=== PATIENT | male | born 1970 | race Caucasian/White ===

== ENCOUNTER 2020-08-02 09:51 | Emergency (ER) | payer BC, OTHER ==
[~2020-08-02] VITALS: Ht 175.3 cm; Wt 79.4 kg
[2020-08-02 09:51] VITALS: BP_SYST 161
[~2020-08-02 09:51] MED LIST: [UNRECOGNIZED DRUG - CODE] PO
--- NOTE | 2020-08-02 09:51 | NUR ---
ASSISTED OUT OF CAR TO WHEELCHAIR, PLACED IN BED #2 AND TRIAGED. REPORT GIVEN TO PRATEEK
--- NOTE | 2020-08-02 09:51 | NUR ---
DR DAVIES AT BEDSIDE FOR EVALUATION
--- NOTE | 2020-08-02 09:52 | NUR ---
Patient arrived in the ED with c/o left ankle injury while golfing today - swelling and deformity noted. Denied any chest pain or shortness of breath. Denied any fevers, chills, nausea or vomiting. Patient is alert and oriented x4, respirations even and unlabored, speaking in full sentences, and ambulating with a steady gait. VSS, pain level 0/10. Informed of the approximate wait time. Instructed to notify ED staff for any changes in condition or worsening of symptoms while waiting to be seen by an ED provider. Patient verbalized understanding.
--- NOTE | 2020-08-02 09:54 | NUR ---
ER at bedside examining patient.
--- NOTE | 2020-08-02 10:15 | NUR ---
X-ray done at bedside as ordered by Dr. Lugo. Patient tolerated the procedure well.
--- NOTE | 2020-08-02 10:40 | NUR ---
ER Dr. Lugo at bedside re-examining patient and giving discharge instructions.
[2020-08-02 10:53] VITALS: BP_SYST 134
--- NOTE | 2020-08-02 10:53 | NUR ---
Patient given written and verbal discharge instructions and verbalizes understanding. ER MD discussed with patient the results and treatment provided. Patient in stable condition. ID arm band removed. No Rx given. Patient educated on pain management and to follow up with PMD. Pain Scale 0/10. Opportunity for questions provided and answered. Medication side effect fact sheet provided.
== END 2020-08-02 10:53 | disposition home or self-care (01) ==
LOC: SED 09:51
DX: S93.492A Sprain of other ligament of left ankle, initial encounter (principal); I10 Essential (primary) hypertension; Z85.9 Personal history of malignant neoplasm, unspecified; Z79.899 Other long term (current) drug therapy; Z88.2 Allergy status to sulfonamides; Z88.0 Allergy status to penicillin; W01.0XXA Fall on same level from slipping, tripping and stumbling without subsequent striking against object, initial encounter; Y93.89 Activity, other specified; Y92.39 Other specified sports and athletic area as the place of occurrence of the external cause; Y99.8 Other external cause status
CPT/HCPCS: 99283

== ENCOUNTER 2023-07-09 06:05 | Emergency (ER) | payer BC ==
[~2023-07-09] VITALS: Ht 175.3 cm; Wt 82.1 kg
[~2023-07-09 06:05] MED LIST changes: +NIAC-47 PO; -[UNRECOGNIZED DRUG - CODE] PO
[2023-07-09 06:11] VITALS: BP_SYST 187; PULSE 89; RESP 20; TEMP 97.9; O2SAT 97
[2023-07-09] MEDS ORDERED: LORazepam 1 MG TABLET PO ONE (06:15)
[2023-07-09 06:43] LABS: BASOPHILS # (AUTO) 0.1 K/uL (0.0-0.2); BASOPHILS % (AUTO) 0.6 % (0.0-2.0); EOSINOPHILS # (AUTO) 0.1 K/uL (0.0-0.4); EOSINOPHILS % (AUTO) 1.8 % (0.0-4.0); HEMATOCRIT 50.4 % (36-54); HEMOGLOBIN 16.6 g/dL (14.0-18.0); LYMPHOCYTES # (AUTO) 2.4 K/uL (1.0-5.5); LYMPHOCYTES % (AUTO) 30.4 % (20.5-51.5); MEAN CORPUSCULAR HEMOGLOBIN 29 pg (27-31); MEAN CORPUSCULAR HGB CONC 33 % (32-36); MEAN CORPUSCULAR VOLUME 89 fL (79.0-98.0); MONOCYTES # (AUTO) 0.8 K/uL (0.0-1.0); MONOCYTES % (AUTO) 9.6 % (1.7-9.3); NEUTROPHILS # (AUTO) 4.6 K/uL (1.8-7.7); NEUTROPHILS % (AUTO) 57.6 % (40.0-70.0); PLATELET COUNT (AUTO) 356 K/uL (130-430); RED BLOOD CELL COUNT(AUTO) 5.69 MIL/uL (4.2-6.2); RED CELL DISTRIBUTION WIDTH 13.7 % (9.0-15.0); WHITE BLOOD COUNT (AUTO) 8.1 K/uL (4.8-10.8)
[2023-07-09 06:57] LABS: ANION GAP 5 (5-15); CALCIUM 9.2 mg/dL (8.4-11.0); CARBON DIOXIDE 28 mmol/L (23-29); CHLORIDE 101 mmol/L (98-107); CREATININE 0.91 mg/dL (0.55-1.30); GFR AFRICAN AMERICAN 112 mL/min (>90); GLUCOSE 103 mg/dL (74-106); POTASSIUM 3.7 mmol/L (3.5-5.1); SODIUM SERUM 134 mmol/L (136-145); UREA NITROGEN, BLOOD 14 mg/dL (8-21)
[2023-07-09 07:04] LABS: ALANINE AMINOTRANSFERASE 47 U/L (12-78); ALBUMIN 3.5 g/dL (3.4-4.8); ASPARTATE AMINOTRANSFERASE 33 U/L (10-37); TOTAL BILIRUBIN 0.4 mg/dL (0.0-1.0); TOTAL PROTEIN, SERUM 6.7 g/dL (6.4-8.3)
[2023-07-09 07:12] LABS: GFR NON AFRICAN-AMERICAN 92 mL/min (>90)
[2023-07-09] MEDS ORDERED: METOPROLOL TARTRATE 25 MG TABLET PO ONE (07:15)
[2023-07-09] MEDS ORDERED: POTASSIUM CHLORIDE 20 MEQ TAB.PRT.SR PO ONE (08:00)
[2023-07-09 08:26] LABS: BARBITURATE, URINE NEGATIVE (NEG <=200); BENZODIAZEPINE, URINE NEGATIVE (NEG <=150); COCAINE, URINE NEGATIVE (NEG <=150); METHAMPHETAMINES SCREEN,URINE NEGATIVE (NEG <=500); URINE AMPHETAMINE NEGATIVE (NEG <=500); URINE METHADONE NEGATIVE (NEG <=200)
[2023-07-09 08:27] LABS: CANNABINOID, URINE NEGATIVE (NEG <=50); OPIATE, URINE NEGATIVE (NEG <=100); PHENCYCLIDINE SCREEN,URINE NEGATIVE (NEG <=25); URINE OXYCODONE SCREEN NEGATIVE (NEG <=100); URINE PROPOXYPHENE SCREEN NEGATIVE (NEG <=300)
[2023-07-09 08:28] LABS: UR TRICYCLIC ANTIDEPRESSANTS NEGATIVE (NEG <=300)
[2023-07-09 09:45] VITALS: BP_SYST 140; PULSE 75; RESP 18; TEMP 98.2; O2SAT 97
== END 2023-07-09 06:08 | disposition home or self-care (01) ==
LOC: SED 06:05
DX: F41.9 Anxiety disorder, unspecified (principal); R00.0 Tachycardia, unspecified; I10 Essential (primary) hypertension; Z88.0 Allergy status to penicillin; Z88.2 Allergy status to sulfonamides; Z88.5 Allergy status to narcotic agent; Z79.899 Other long term (current) drug therapy
CPT/HCPCS: 36415; 80053; 80307; 83735; 84484; 85025; 93005; 99284